=== PATIENT | female | born 1985 | race Two or more races ===

== ENCOUNTER 2019-11-29 15:30 | Emergency (ER) | payer OTHER, MEDICAID ==
[~2019-11-29] VITALS: Ht 170.2 cm; Wt 87.5 kg
[2019-11-29 15:45] VITALS: BP 147/84
[2019-11-29 16:10] LABS: BASOPHILS % (AUTO) 0.4 % (0.0-2.0); EOSINOPHILS % (AUTO) 0.8 % (0.0-6.0); HEMATOCRIT 42 % (33-45); HEMOGLOBIN 14.1 g/dL (11.5-14.8); LYMPHOCYTES # (AUTO) 2.2 /CMM (0.8-4.8); LYMPHOCYTES % (AUTO) 20.3 % (20.0-44.0); MEAN CORPUSCULAR HGB CONC 34 g/dl (31.0-36.0); MEAN CORPUSCULAR VOLUME 91 fL (82-100); MONOCYTES # (AUTO) 0.6 /CMM (0.1-1.30); MONOCYTES % (AUTO) 5.7 % (2.0-12.0); NEUTROPHILS # (AUTO) 7.9 /CMM (1.8-8.9); NEUTROPHILS % (AUTO) 72.8 % (43.0-81.0); PLATELET COUNT (AUTO) 195 /CMM (150-450); RED BLOOD CELL COUNT(AUTO) 4.61 MIL/uL (4.0-5.2); WHITE BLOOD COUNT (AUTO) 10.8 K/uL (4.3-11.0)
[2019-11-29 16:17] LABS: CALCIUM, SERUM 9.3 mg/dL (8.5-10.1); CREATININE 0.7 mg/dL (0.6-1.3); POTASSIUM 3.6 mmol/L (3.5-5.1)
[2019-11-29 16:23] LABS: ALBUMIN 3.6 g/dL (3.4-5.0); BILIRUBIN,DIRECT 0.1 mg/dL (0.0-0.2); BILIRUBIN,TOTAL 0.4 mg/dL (0.2-1.0); TOTAL PROTEIN, SERUM 7.1 g/dL (6.4-8.2)
[2019-11-29] MEDS ORDERED: IOHEXOL-300 100 ML VIAL IV ONE (17:49)
[2019-11-29] MEDS ORDERED: IBUPROFEN 600 MG TABLET PO ONE ×2 (19:25→19:30)
== END 2019-11-29 19:28 | disposition home or self-care (01) ==
LOC: ER 15:30
DX: K76.89 Other specified diseases of liver (principal); M54.2 Cervicalgia; M54.9 Dorsalgia, unspecified; R51 Headache; F17.200 Nicotine dependence, unspecified, uncomplicated; Z98.890 Other specified postprocedural states; Z60.2 Problems related to living alone; V49.49XA Driver injured in collision with other motor vehicles in traffic accident, initial encounter; Y93.89 Activity, other specified; Y92.488 Other paved roadways as the place of occurrence of the external cause; Y99.8 Other external cause status
CPT/HCPCS: 36415; 71260; 72125; 74177; 80048; 80076; 84702; 85025; 99284; 99406; Q9967